=== PATIENT | female | born 1990 | race Caucasian/White ===

== ENCOUNTER 2020-01-25 14:55 | Outpatient (RCR) | payer OTHER, SELFPAY ==
[2020-01-01 10:29] VITALS: BP 112/70; PULSE 106
[2020-01-25 15:32] VITALS: BP 103/81; PULSE 96
== END 2020-02-18 08:54 | disposition home or self-care (01) ==
LOC: ANHOBOP 14:55
PROVIDERS: Visit Provider Obstetrics & Gynecology
DX: P59.9 Neonatal jaundice, unspecified (principal)
CPT/HCPCS: 59025

== ENCOUNTER 2020-02-15 05:58 | Inpatient (IN) | payer OTHER, SELFPAY ==
[2020-02-15] VITALS (164 sets, daily range): BP systolic 71–149; BP diastolic 47–97; PULSE 69–132; RESP 14; TEMP 36.4–37.2; O2SAT 94–100; BMI 44.5
[2020-02-15 06:49] LABS: Basophils Percent Auto 0.2 % (0.2-1.2); Eosinophils Absolute Auto 0.1 K/mm3 (0-0.3); Eosinophils Percent Auto 0.4 % (0-4.4); Hematocrit 32.7 % (37.0-47.0); Hemoglobin 10.6 g/dL (12.0-15.0); Immature Granulocyte Absolute 0.09 K/mm3 (0.00-0.031); Immature Granulocyte Percent A 0.6 % (0-0.5); Lymphocytes Absolute Auto 2.17 K/mm3 (0.9-3.2); Lymphocytes Percent Auto 15.5 % (18.3-44.2); Mean Corpuscular HGB Conc 32.4 g/dl (32-36); Mean Corpuscular Hemoglobin 27.8 pg (26-34); Mean Corpuscular Volume 85.8 fl (80-100); Mean Platelet Volume 9.7 fl (7.4-10.4); Monocytes Absolute Auto 0.9 K/mm3 (0.1-0.6); Monocytes Percent Auto 6.1 % (2.6-8.5); Neutrophils Absolute Auto 10.8 K/mm3 (1.3-6.7); Neutrophils Percent Auto 77.2 % (45.5-73.1); Platelet Count Result 280 k/mm3 (150-375); Red Blood Count 3.81 M/mm3 (4.2-5.4); Red Cell Distribution Width 14.6 % (11.5-14.5)
[2020-02-15] MEDS: LACTATED RINGERS 1,000 ML 125 ML IV CONT ×3 (06:55→10:14)
[2020-02-15] MEDS: ONDANSETRON INJ 4 MG/2 ML VIAL IV PUSH (06:56)
[2020-02-15] MEDS: OXYTOCIN 30 UNITS/NS 500 ML 30 UNITS/500 ML BAG IV CONT (07:00)
--- NOTE | 2020-02-15 07:21 | LDADM ---
This patient, Yessy Moss, was admitted to Labor/Delivery/Recovery 104 on 02/15/20 at 05:58. Plans for labor, pain management and were discussed with patient. Patient/family oriented to hospital policies and general routines including ID bracelet, bed and alarms, visiting hours, pain management, procedures, bathroom and other care routines, personal items, smoking policy, room service/diet and guest tray routines, security routines, and visiting hours. Patient/Family are encouraged to report perceived risks to care and to ask questions if they do not understand what they are told or what they should do. See OBIX for further documentation.
--- NOTE | 2020-02-15 07:40 | WPDOBADMIT ---
Obstetrics - Admit Note Admission Note: record reviewed. No pertinent additions to the history and/or any subsequent changes in the physical findings that are not consistent with the expected course of the were found. MIL 39 weeks gestation, obesity, AROM 4/70/-2 moderate amount of clear odorless fluid Additions to the history and/or subsequent changes in the physical findings follow. None.
--- NOTE | 2020-02-15 09:37 | WPDANESEPPF ---
Anes - Initial Pre Proc Eval Date/Time: 02/15/20 09:37 Surgeon: Hamida Davis MD Pre Op Diagnosis: Induction of Labor Patient Data Age: 29 Gender: F Height: 1.6 m Weight: 114 kg Last Vital Signs Temp 36.9 C 02/15/20 08:30 Pulse 99 02/15/20 09:31 BP 143/90 H 02/15/20 09:31 Allergies Allergy/AdvReac Type Severity Reaction Status Date / Time No Known Allergies Allergy Verified 01/25/20 14:31 Home Medications Medication Instructions Recorded Confirmed Type PNV cmb#95-ferrous fumarate-FA 1 tablet PO DAILY 01/25/20 01/25/20 History [] Laboratory Tests 02/15/20 02/15/20 02/15/20 06:39 06:39 06:39 WBC 14.0 K/mm3 H K/mm3 (4.5-10.0) RBC 3.81 M/mm3 L M/mm3 (4.2-5.4) Hgb 10.6 g/dL L g/dL (12.0-15.0) Hct 32.7 % L % (37.0-47.0) MCV 85.8 fl fl (80-100) MCH 27.8 pg pg (26-34) MCHC 32.4 g/dl g/dl (32-36) RDW 14.6 % H % (11.5-14.5) Plt Count 280 k/mm3 k/mm3 (150-375) MPV 9.7 fl fl (7.4-10.4) Immature Gran % (Auto) 0.6 % H % (0-0.5) Neut % (Auto) 77.2 % H % (45.5-73.1) Lymph % (Auto) 15.5 % L % (18.3-44.2) [place] % (Auto) 6.1 % % (2.6-8.5) Eos % (Auto) 0.4 % % (0-4.4) Baso % (Auto) 0.2 % % (0.2-1.2) Lymph # (Auto) 2.17 K/mm3 K/mm3 (0.9-3.2) [place] # (Auto) 0.9 K/mm3 H K/mm3 (0.1-0.6) Eos # (Auto) 0.1 K/mm3 K/mm3 (0-0.3) Baso # (Auto) 0.0 K/mm3 K/mm3 (0.0-0.1) Abs Immat Gran (auto) 0.09 K/mm3 H K/mm3 (0.00-0.031) Absolute Neuts (auto) 10.8 K/mm3 H K/mm3 (1.3-6.7) Absolute Nucleated RBC 0.0 K/mm3 K/mm3 (0.0-0.012) Nucleated RBC % 0.0 % % (0.0-0.2) RPR Pending Blood Type A Positive Antibody Screen Negative Patient hx anesthesia problems: none Family hx anesthesia problems: none [facility] Family History Family History (Updated 01/25/20 @ 14:33 by Jessica Moreno RN) Father Hypertension Social History Social History Smoking status: Never smoker Substance use: never Spiritual care concerns: No Anes - Eval Final PreProcedure Day of Procedure 02/15/20 09:37 Patient weight: overweight Heart: regular rate and rhythm Lungs: clear to auscultation and normal air movement Airway: Mallampati scale class II Neurological: alert and oriented Last oral intake: >/= 8 hours ASA classification: II Emergent: no Anesthetic plan: proceed Anesthesia type and monitoring: regional epidural Informed Consent: The patient's anesthetic plan and its attendant risks and benefits were discussed with the patient/family/POA. Questions were solicited and answers provided to the satisfaction of the patient/family/POA.
[2020-02-15] MEDS: FAMOTIDINE 20 MG/2 ML VIAL IV PUSH (15:53)
--- NOTE | 2020-02-15 16:18 | P.PCNOB_ITS ---
OB - Delivery Note Procedure Delivery date: 02/15/20 Procedure: vaginal delivery, obesity Intrapartal events: None Induction method: AROM and per pitocin protocol Delivery monitor: external FHT and external uterine Laceration description: Perineal - 1st Degree Delivery repair: vicryl Specimen: No Estimated blood loss (mL): 30 Anesthesia type: Epidural Disposition: other () Narrative: mother and baby in stable condition [place] Date of : 02/15/20 Time of : 16:04 Weeks of gestation at delivery: 39 gender: Male Weight (pounds): 8 Weight (ounces): 15 presentation: vertex position: Left Occiput Anterior Placenta delivery description: Spontaneous cord vessel description: 3 Vessels and Clamped/Cut score one minute: 9 score five minutes: 9
[2020-02-15] MEDS: OXYTOCIN 30 UNITS/NS 500 ML 30 UNITS/500 ML BAG 125 UNITS IV CONT (16:36)
[2020-02-15] MEDS: METHYLERGONOVINE MALEATE 0.2 MG/ML VIAL IM (18:03)
[2020-02-15] MEDS: WITCH HAZEL 40 PADS 1 PAD TOPICAL (19:25)
[2020-02-15] MEDS: BENZOCAINE 20% AER SPR (*SP) 56 GM CAN 1 SPRAY TOPICAL (19:25)
[2020-02-15] MEDS: IBUPROFEN 600 MG TABLET PO (22:30)
--- NOTE | 2020-02-15 22:47 | PC.NURSE ---
Patient transferred to post room #291 via ( wheelchair ). Support person present. Oriented to unit, room, information board, rooming in, admission packet and security measures. Patient verbalizes understanding.
[2020-02-16] MEDS: IBUPROFEN 600 MG TABLET PO (04:23)
[2020-02-16 05:39] LABS: Hematocrit 29.1 % (37.0-47.0); Hemoglobin 9.2 g/dL (12.0-15.0)
[2020-02-16] MEDS: POLYSACCHARIDE IRON COMPLEX 150 MG CAPSULE PO (08:51)
[2020-02-16] MEDS: MULTIVIT/MIN/PREN/FOL AC/IRON TABLET 1 TAB PO (08:51)
[2020-02-16] MEDS: DOCUSATE SODIUM 100 MG CAPSULE PO (08:51)
--- NOTE | 2020-02-16 09:50 | P.PNOB_ITS ---
OB - PN: Subj Subjective Date/time seen: 02/16/20 09:50 OB - PN: Obj Data Labs CBC & Chem 7: 02/16/20 04:28 Labs: Laboratory Results - last 24 hr 02/16/20 04:28 Hgb 9.2 L Hct 29.1 L OB - PN A/P Assessment and Plan (1) Vaginal delivery: Code(s): O80 - Encounter for full-term uncomplicated delivery Status: Acute Plan day: 1 Plan: routine care Comments: Pt is considering discharge after 24 hours. Time Spent With Patient Time: Total time spent is greater than 50% in coordination of care (as documented) at patient's floor/unit and/or counseling patient: Time with patient: less than 15 minutes Review of Systems Review of Systems: All systems reviewed & are unremarkable except as noted in HPI and below Exam Narrative: Exam Narrative: Fundus firm and vaginal flow controlled. Const: General: comfortable Chest: Breast/axilla inspection: normal inspection of the breasts Resp: Effort & Inspection: normal respiratory effort Cardio: Rate: regular rate Psych: Appearance: grossly normal Affect: normal affect Attitude: coope rative Judgement: Good judgement present (Psych)
[2020-02-16 09:55] VITALS: BP 115/83; PULSE 101; RESP 18; TEMP 36.9
[2020-02-18 07:06] LABS: Rapid Plasma Reagin Non-Reactive (NonReactive)
--- NOTE | 2020-02-20 07:51 | P.DS_ITS ---
DS: Diagnosis Admitting Diagnosis Admitting Diagnosis: Encounter for full-term uncomplicated delivery OB - DS: Summary OB Procedures : None OB Procedures Intrapartum: Spontaneous Vag Delivery OB Procedures: : None Time Spent with Patient Time attestation: Total time spent providing and/or coordinating discharge services: Discharge Plan Discharge Attending physician on discharge: Augustina Curry Consulting providers: Cammie Pantoja ; Augustina Curry Discharging Clinician: Cammie Pantoja Patient Disposition: Home, Self-Care Activity: pelvic rest Diet: as tolerated Discharge Instructions: Education: Mom and Baby Guide Given to: Mother Follow-Up: Call your delivering provider's office for an appointment to be seen. Mom and baby should come to the [facility] for the follow-up appointment. Appointment Date/Time: February 19, 2020 at 8:00 am. What to expect at your follow-up visit: Physical Assessment Call [phone] if you are unable to keep your appointment time. BREAST CARE: 1. Wear a snug supportive bra. 2. For engorgement discomfort: Breast Feeding: A. Apply warm moist washcloths B. Express milk as needed to relieve engorgement C. Wear loose clothing 3. For sore nipples: A. Identify correct latch-on B. Apply warm moist washcloths before and after nursing C. Air dry nipples after nursing D. May apply Lansinoh cream to nipples EPISIOTOMY/PERINEAL CARE: 1. Until bleeding stops, use your tala bottle after urinating 2. Change your pad frequently throughout the day 3. You may take sitz baths several times a day (fill your bathtub with warm water and soak for 20 minutes.) Do NOT bathe in the water 4. No tub baths until seen by your physician - You may shower ACTIVITY: 1. Rest as much as possible. 2. Do not exercise or lift anything heavier than your baby (such as laundry or other children.) 3. Avoid stairs or driving as much as possible. 4. Do not put anything into the vagina. No douching, tampons, or sexual act ivity until seen by physician. NOTIFY PHYSICIAN IF YOU HAVE ANY QUESTIONS OR IF ANY OF THE FOLLOWING SYMPTOMS OCCUR: 1. If your stitches becomes red, swollen, or more painful than what you have experienced in the hospital. 2. If your vaginal bleeding becomes foul smelling. 3. If your vaginal bleeding becomes more heavy than a period or if your bleeding changes from pink to bright red. However, you may pass an occasional walnut- sized clot once or twice for the first week . 4. If you experience a sharp, shooting pain in you calves. 5. If you discover a hard, reddened area on your breast or if you experience flu-like symptoms. DIET: 1. Eat regular, well-balanced meals. 2. Drink plenty of fluids daily. If , drink to thirst. Stand Alone Forms: General Discharge Information Follow-up/Referrals: Hamida Davis MD [Physician] - Discharge Medications: New polysaccharide iron complex 150 mg iron Capsule 150 mg PO BIDWM Qty: 60 RF: 0 Continued PNV cmb#95-ferrous fumarate-FA [] 28 mg iron- 800 mcg Tablet 1 tablet PO DAILY RF: 0 Date of admission: 02/15/20 05:58 Primary Care Provider: UNKNOWN,DOCTOR Admitting Provider: Hamida Davis Discharge Date/Time: 02/16/20 17:04 Attending physician on admission: Hamida Davis
--- NOTE | 2020-02-21 04:29 | PM.OBDSVD ---
DS: Diagnosis Admitting Diagnosis Admitting Diagnosis: Encounter for full-term uncomplicated delivery OB - DS: Summary OB Procedures : None OB Procedures Intrapartum: Spontaneous Vag Delivery OB Procedures: : None Time Spent with Patient Time attestation: Total time spent providing and/or coordinating discharge services: Discharge Plan Discharge Attending physician on discharge: Augustina Curry Consulting providers: Cammie Pantoja ; Augustina Curry Discharging Clinician: Cammie Pantoja Patient Disposition: Home, Self-Care Activity: pelvic rest Diet: as tolerated Discharge Instructions: Education: Mom and Baby Guide Given to: Mother Follow-Up: Call your delivering provider's office for an appointment to be seen. Mom and baby should come to the [facility] for the follow-up appointment. Appointment Date/Time: February 19, 2020 at 8:00 am. What to expect at your follow-up visit: Physical Assessment Call [phone] if you are unable to keep your appointment time. BREAST CARE: 1. Wear a snug supportive bra. 2. For engorgement discomfort: Breast Feeding: A. Apply warm moist washcloths B. Express milk as needed to relieve engorgement C. Wear loose clothing 3. For sore nipples: A. Identify correct latch-on B. Apply warm moist washcloths before and after nursing C. Air dry nipples after nursing D. May apply Lansinoh cream to nipples EPISIOTOMY/PERINEAL CARE: 1. Until bleeding stops, use your tala bottle after urinating 2. Change your pad frequently throughout the day 3. You may take sitz baths several times a day (fill your bathtub with warm water and soak for 20 minutes.) Do NOT bathe in the water 4. No tub baths until seen by your physician - You may shower ACTIVITY: 1. Rest as much as possible. 2. Do not exercise or lift anything heavier than your baby (such as laundry or other children.) 3. Avoid stairs or driving as much as possible. 4. Do not put anything into the vagina. No douching, tampons, or sexual activity until seen by physician. NOTIFY PHYSICIAN IF YOU HAVE ANY QUESTIONS OR IF ANY OF THE FOLLOWING SYMPTOMS OCCUR: 1. If your stitches becomes red, swollen, or more painful than what you have experienced in the hospital. 2. If your vaginal bleeding becomes foul smelling. 3. If your vaginal bleeding becomes more heavy than a period or if your bleeding changes from pink to bright red. However, you may pass an occasional walnut-sized clot once or twice for the first week . 4. If you experience a sharp, shooting pain in you calves. 5. If you discover a hard, reddened area on your breast or if you experience flu-like symptoms. DIET: 1. Eat regular, well-balanced meals. 2. Drink plenty of fluids daily. If , drink to thirst. Stand Alone Forms: General Discharge Information Follow-up/Referrals: Hamida Davis MD [Physician] - Discharge Medications: New polysaccharide iron complex 150 mg iron Capsule 150 mg PO BIDWM Qty: 60 RF: 0 Continued PNV cmb#95-ferrous fumarate-FA [] 28 mg iron- 800 mcg Tablet 1 tablet PO DAILY RF: 0 Date of admission: 02/15/20 05:58 Primary Care Provider: UNKNOWN,DOCTOR Admitting Provider: Hamida Davis Discharge Date/Time: 02/16/20 17:04 Attending physician on admission: Hamida Davis
== END 2020-02-16 17:04 | disposition home or self-care (01) | DRG 807 ==
LOC: ANHLDR 06:05 → ANHOB2 19:46
PROVIDERS: Advanced Practice Midwife; Admitting Provider Obstetrics & Gynecology; Visit Provider Obstetrics & Gynecology
DX: O99.214 Obesity complicating childbirth (principal); Z37.0 Single live birth; Z3A.39 39 weeks gestation of pregnancy; E66.9 Obesity, unspecified; O70.0 First degree perineal laceration during delivery
CPT/HCPCS: 36415; 85014; 85018; 85025; 86592; 86850; 86900; 86901; A9270; J2210; J2405; J2590; J2795; J7120

== ENCOUNTER 2022-02-23 21:37 | Observation (INO) | payer OTHER, SELFPAY ==
[2022-02-23] VITALS (9 sets, daily range): BP systolic 111–127; BP diastolic 74–84; PULSE 74–91; RESP 13–35; TEMP 36.2; O2SAT 94–99
--- NOTE | ~2022-02-23 | CT_ITS ---
EXAMINATION: CT abdomen pelvis w con INDICATION: Lower abdominal pain TECHNIQUE: Computed tomographic images of the abdomen and pelvis were obtained after the administrati on of 100 cc of Omnipaque 300 intravenous contrast. The dose-length product (DLP) was 1421.12 mGy-cm. Automated exposure control and iterative reconstruction technique were employed. COMPARISON: None available FINDINGS: Minimal dependent atelectasis is present in the lung bases. The heart size is normal. The s pleen, pancreas, and adrenal glands are normal. Stones are present in the nondistended gallbladder. T here is a 1.7 cm hemangioma in the right hepatic lobe. The kidneys are unremarkable. Colonic divertic ulosis is noted. There is wall thickening of the sigmoid colon with edematous stranding of the adjace nt perisigmoid fat. There are small foci of free air adjacent to the affected segment. A small volume of pelvic ascites is present. No pathologically enlarged abdominal or pelvic lymph nodes are identif ied. There are no dilated loops of bowel. The appendix is normal. There is mild anterior wedging of v ertebral bodies in the lower thoracic spine. IMPRESSION: 1. Perforated sigmoid diverticulitis. 2. Cholelithiasis without evidence of cholecystitis. Reviewed, dictated and finalized at location A.
[2022-02-23 22:05] LABS: Appearance Urine Clear (Clear); Bilirubin Urine 1+ (Negative); Blood Urine Negative (Negative); Color Urine Yellow (Yellow); Glucose Urine UA Negative (Negative); Ketones Urine 2+ mg/dL (Negative); Leukocyte Esterase Ur Trace LEU/UL (Negative); Nitrate Urine Negative (Negative); Protein Urine 2+ mg/dL (Negative); Specific Grav Ur >= 1.030 (1.001-1.035); Urobilinogen Urine 0.2 mg/dL (<2.0)
[2022-02-23 22:10] LABS: Add Urine Microscopic? YES; Mucus Urine Moderate /lpf; Squamous Epithelial Cell Urine Moderate /hpf (Few)
[2022-02-23 22:31] LABS: Basophils Percent Auto 0.5 % (0.2-1.2); Eosinophils Absolute Auto 0.1 K/mm3 (0-0.3); Eosinophils Percent Auto 0.8 % (0-4.4); Hematocrit 38.5 % (37.0-47.0); Hemoglobin 12.5 g/dL (12.0-15.0); Immature Granulocyte Absolute 0.02 K/mm3 (0.00-0.031); Immature Granulocyte Percent A 0.3 % (0-0.5); Lymphocytes Percent Auto 9.2 % (18.3-44.2); Mean Corpuscular HGB Conc 32.5 g/dl (32-36); Mean Corpuscular Hemoglobin 29.1 pg (26-34); Mean Corpuscular Volume 89.5 fl (80-100); Mean Platelet Volume 9.2 fl (7.4-10.4); Monocytes Absolute Auto 0.6 K/mm3 (0.1-0.6); Monocytes Percent Auto 7.6 % (2.6-8.5); Neutrophils Absolute Auto 6.2 K/mm3 (1.3-6.7); Neutrophils Percent Auto 81.6 % (45.5-73.1); Platelet Count Result 274 k/mm3 (150-375); Red Cell Distribution Width 12.8 % (11.5-14.5); White Blood Count 7.6 K/mm3 (4.5-10.0)
[2022-02-23 22:43] LABS: Alanine Aminotransferase 118 U/L (6-35); Albumin Level 4.2 g/dL (3.5-5.1); Alkaline Phosphatase 126 U/L (38-126); Anion Gap 7 mmol/L (8-16); Aspartate Amino Transferase 137 U/L (14-36); Bilirubin,Total 0.4 mg/dL (0.2-1.3); Blood Urea Nitrogen 17 mg/dL (7-17); Calcium 8.9 mg/dL (8.4-10.2); Carbon Dioxide 27 mmol/L (22-30); Chloride 100 mmol/L (98-107); Estimated CRCL calculation 109 ml/min; Estimated Glomerular Filt Rate > 60; Glucose 125 mg/dL (65-110); Lipase 64 U/L (23-300); Potassium 3.6 mmol/L (3.4-5.0); Sodium 134 mmol/L (137-145)
--- NOTE | 2022-02-23 23:48 | ED.ABDPAIN ---
HPI - Abdominal Pain General Chief Complaint: Abdominal Pain <KATLYN Ngo Last Filed: 02/24/22 02:14> Stated Complaint: pelvic pain <KATLYN Ngo Last Filed: 02/24/22 02:14> Time Seen by Provider: 02/23/22 22:36 <KATLYN Ngo Last Filed: 02/24/22 02:14> Source: patient <KATLYN Nog Last Filed: 02/24/22 02:14> Mode of arrival: ambulatory <KATLYN Ngo Last Filed: 02/24/22 02:14> Limitations: no limitations <KATLYN Ngo Last Filed: 02/24/22 02:14> History of Present Illness HPI narrative: Patient is a 31-year-old female who presents the ED with report of suprapubic abdominal pain. Patient reports the pain began suddenly on Tuesday. She states the pain is worse with movement and feels as though when she moves there is something stationary in her lower abdomen which causes the pain. She has been taking ibuprofen at home which does provide relief of the pain but only temporary. She states she did have 1 episode of nausea and vomiting when the pain first began but has not had any since then. She has also had a subjective fever, chills, recent constipation, and urinary pressure with small void urine at home but denies any nausea, vomiting, upper abdominal pain, hematuria, rectal bleeding, melena, diarrhea. <KATLYN Ngo Last Filed: 02/24/22 02:14> Related Data Home Medications: Home Medications Medication Instructions Recorded Confirmed No Home Medications 02/24/22 02/24/22 <KATLYN Ngo Last Filed: 02/24/22 02:14> Allergies/Adverse Reactions: Allergies Allergy/AdvReac Type Severity Reaction Status Date / Time No Known Allergies Allergy Verified 02/23/22 21:48 <KATLYN Ngo Last Filed: 02/24/22 02:14> Review of Systems Review of Systems: CONSTITUTIONAL: Reports subjective fever and chills. Denies sweats. CARDIOVASCULAR: Denies chest pain. RESPIRATORY: Denies dyspnea. GASTROINTESTINAL: Reports suprapubic abdominal pain, constipation. Denies upper abdominal pain, nausea, vomiting, rectal bleeding, melena, or diarrhea. GENITOURINARY: Reports urinary pressure with small void urine. Denies dysuria or hematuria. SKIN: Denies rash or itching. MUSCULOSKELETAL: Denies back pain, joint pain, or myalgia. <Shonna Gutierrez PA-C - Last Filed: 02/24/22 02:14> All systems reviewed & are unremarkable except as noted in HPI and below <Shonna Gutierrez PA-C - Last Filed: 02/24/22 02:14> [facility] Past Medical History Medical History: Medical History (Updated 02/24/22 @ 01:42 by Shonna Gutierrez PA-C) No pertinent past medical history <Shonna Gutierrez PA-C - Last Filed: 02/24/22 02:14> Surgical History Surgical History: Surgical History (Updated 02/24/22 @ 01:42 by Shonna Gutierrez PA-C) No pertinent past surgical history <Shonna Gutierrez PA-C - Last Filed: 02/24/22 02:14> Family History Family History: Family History Father Hypertension <Shonna Gutierrez PA-C - Last Filed: 02/24/22 02:14> Social History Social History: Social History Smoking status: Never smoker Alcohol intake: current Substance use: never Spiritual care concerns: No <Shonna Gutierrez PA-C - Last Filed: 02/24/22 02:14> Exam Narrative: GENERAL: Well appearing, obese, non-toxic, in no acute distress. HEAD: Normocephalic, atraumatic. NECK: Supple. No adenopathy, no masses. RESPIRATORY: Airway patent, respirations nonlabored. Clear to auscultation bilaterally, no rales, rhonchi, wheezing. CARDIOVASCULAR: Regular rate and rhythm without murmurs, rubs, or gallops. Radial pulses 2+ and equal bilaterally. ABDOMINAL: Soft, suprapubic tenderness to palpation, greater on left side than right. No tenderness to palpation in any other quadrants. Nondistended, no hepatosplenomegaly. Nor
[2022-02-24] VITALS (18 sets, daily range): BP systolic 103–135; BP diastolic 63–76; PULSE 60–87; RESP 16–30; TEMP 36.1–37.6; O2SAT 96–100
[2022-02-24] MEDS: SODIUM CHLORIDE 0.9% IV 1,000 ML 999 ML IV CONT (00:11)
--- NOTE | 2022-02-24 00:28 | PC.NURSE ---
Patient taken down for CT Scan at this time.
[2022-02-24 02:49] LABS: Lactic Acid Reflex 0.6 mmol/L (0.7-2.0)
[2022-02-24 03:18] LABS: SARS-CoV-2 RNA PCR Negative
--- NOTE | 2022-02-24 04:03 | ADMGEN ---
This patient, Yessy Moss, was admitted to [facility] Surg Room 314-01. Patient/family oriented to hospital policies and general routines including ID bracelet, bed and alarms, visiting hours, pain management, procedures, bathroom and other care routines, personal items, smoking policy, room service/diet, and visiting hours. Information on how to activate the Rapid Response Team has been discussed. Patient/Family are encouraged to report perceived risks to care and to ask questions if they do not understand what they are told or what they should do.
[2022-02-24] MEDS: SODIUM CHLORIDE 0.9% IV 1,000 ML 125 ML IV CONT (04:24)
[2022-02-24 06:34] LABS: Basophils Absolute Auto 0.1 K/mm3 (0.0-0.1); Basophils Percent Auto 0.8 % (0.2-1.2); Eosinophils Absolute Auto 0.1 K/mm3 (0-0.3); Eosinophils Percent Auto 2.1 % (0-4.4); Hemoglobin 11.5 g/dL (12.0-15.0); Immature Granulocyte Absolute 0.03 K/mm3 (0.00-0.031); Immature Granulocyte Percent A 0.5 % (0-0.5); Lymphocytes Percent Auto 13.5 % (18.3-44.2); Mean Corpuscular HGB Conc 31.9 g/dl (32-36); Mean Corpuscular Volume 90.9 fl (80-100); Mean Platelet Volume 9.7 fl (7.4-10.4); Monocytes Absolute Auto 0.7 K/mm3 (0.1-0.6); Monocytes Percent Auto 10.2 % (2.6-8.5); Neutrophils Absolute Auto 4.9 K/mm3 (1.3-6.7); Neutrophils Percent Auto 72.9 % (45.5-73.1); Platelet Count Result 257 k/mm3 (150-375); Red Blood Count 3.96 M/mm3 (4.2-5.4); Red Cell Distribution Width 12.9 % (11.5-14.5); White Blood Count 6.7 K/mm3 (4.5-10.0)
[2022-02-24 06:55] LABS: Alanine Aminotransferase 119 U/L (6-35); Albumin Level 3.8 g/dL (3.5-5.1); Alkaline Phosphatase 118 U/L (38-126); Anion Gap 6 mmol/L (8-16); Aspartate Amino Transferase 104 U/L (14-36); Bilirubin,Total 0.3 mg/dL (0.2-1.3); Blood Urea Nitrogen 11 mg/dL (7-17); Calcium 8.1 mg/dL (8.4-10.2); Carbon Dioxide 24 mmol/L (22-30); Chloride 105 mmol/L (98-107); Estimated CRCL calculation 143 ml/min; Estimated Glomerular Filt Rate > 60; Glucose 101 mg/dL (65-110); Potassium 3.5 mmol/L (3.4-5.0); Sodium 135 mmol/L (137-145)
--- NOTE | 2022-02-24 10:37 | PM.IMHP ---
H&P: HPI History of Present Illness Date/Time: 02/24/22 10:37 Chief Complaint: Lower abdominal pain Narrative: This is 31-year-old female who no pertinent medical history, who presented to the ER with complaints of suprapubic abdominal pain. She reports first noticing some nausea and had an episode of vomiting at home 3 days ago. Following the episode of vomiting, she noticed a gradual onset of suprapubic abdominal pain. She thought the pain was related to the vomiting, and took ibuprofen for this. The pain improved. Over the next 2 days, she continued to have the same abdominal pain and would take ibuprofen as needed and felt it was helping with her pain. She states bending over seemed to aggravate the pain. She does report associated chills, but did not take her temperature to know if she had a fever. Yesterday, her abdominal pain was worsening despite taking ibuprofen, which prompted her to go into the ER for evaluation. She states that the bumps in the road on the way to the ER aggravated her pain. CT scan of the abdomen and pelvis showed perforated sigmoid diverticulitis and cholelithiasis without evidence of cholecystitis. Labs showed a white blood cell count of 6700, lactic acid 0.6, AST 137, and ALT 118. COVID test negative. Urinalysis noted to be abnormal. Patient denies any dysuria, frequency, urgency, or any other urinary complaints. Our service was called by the ED physician and the patient was admitted in the setting. She was started on IV Zosyn, IV fluids, and made NPO. She is now seen on medical floor. She reports her abdominal pain has improved significantly since admission. She denies having any abdominal pain at this time. She has not had any further nausea or vomiting since Tuesday. She reports her last bowel movement was either Tuesday night or Tuesday, but reportedly normal for her. She reports flatus. She denies a history of diverticulitis. She has never had a colonoscopy in the past. No previous abdominal surgeries. Review of Systems Review of Systems: All systems reviewed & are unremarkable except as noted in HPI and below Constitutional: Constitutional: Reports as per HPI, Reports chills and Denies fatigue Eyes: Eyes: Reports no additional eye complaints and Denies change in vision ENT: Reports system reviewed and no additional complaints, except as documented and Reports Normal hearing present Cardiovascular: Cardiovascular: Reports no additional cardiovascular complaints, Denies chest pain and Denies leg edema Respiratory: Respiratory: Reports no additional respiratory complaints, Denies cough and Denies dyspnea Gastrointestinal: Gastrointestinal: Reports as per HPI, Reports no additional gastrointestinal complaints, Reports abdominal pain (suprapubic), Denies bloating, Denies change in bowel habits, Denies coffee ground emesis, Denies constipation, Denies diarrhea, Reports nausea, Reports vomiting and Denies hematemesis Genitourinary: Genitourinary: Reports no additional female genitourinary complaints, Denies hematuria, Denies nocturia and Denies dysuria Musculoskeletal: Musculoskeletal: Reports no additional musculoskeletal complaints and Denies joint swelling Integumentary/Breasts: Skin/Breast: Reports system reviewed and no additional complaints, except as docu and Denies jaundice Neurologic: Reports system reviewed and no additional complaints, except as documented, Denies dizziness, Denies focal weakness, Denies numbness and Denies tingling PMFSH Past Medical History Medical History (Updated 02/24/22 @ 10:49 by CHARLIE Reyes) No pertinent past medical history Surgical History Surgical History (Updated 02/24/22 @ 10:49 by CHARLIE Reyes) No pertinent past surgical history Family History Family History Father Hypertension Social History Social History Smoki
[2022-02-24] MEDS: SODIUM CHLORIDE 0.9% IV 1,000 ML 75 ML IV CONT (14:11)
[2022-02-25] MEDS: SODIUM CHLORIDE 0.9% IV 1,000 ML 75 ML IV CONT (02:36)
[2022-02-25 06:00] VITALS: BP 115/78; PULSE 69; RESP 16; TEMP 36.8; O2SAT 100
[2022-02-25 07:04] LABS: Basophils Absolute Auto 0.1 K/mm3 (0.0-0.1); Basophils Percent Auto 0.7 % (0.2-1.2); Eosinophils Absolute Auto 0.1 K/mm3 (0-0.3); Eosinophils Percent Auto 1.9 % (0-4.4); Hematocrit 34.6 % (37.0-47.0); Immature Granulocyte Absolute 0.02 K/mm3 (0.00-0.031); Immature Granulocyte Percent A 0.3 % (0-0.5); Lymphocytes Percent Auto 21.7 % (18.3-44.2); Mean Corpuscular HGB Conc 31.8 g/dl (32-36); Mean Corpuscular Hemoglobin 29.1 pg (26-34); Mean Corpuscular Volume 91.5 fl (80-100); Mean Platelet Volume 9.4 fl (7.4-10.4); Monocytes Absolute Auto 0.9 K/mm3 (0.1-0.6); Monocytes Percent Auto 12.4 % (2.6-8.5); Neutrophils Absolute Auto 4.7 K/mm3 (1.3-6.7); Platelet Count Result 278 k/mm3 (150-375); Red Blood Count 3.78 M/mm3 (4.2-5.4); Red Cell Distribution Width 12.9 % (11.5-14.5); White Blood Count 7.4 K/mm3 (4.5-10.0)
[2022-02-25 07:25] LABS: Alanine Aminotransferase 97 U/L (6-35); Albumin Level 3.5 g/dL (3.5-5.1); Alkaline Phosphatase 160 U/L (38-126); Anion Gap 7 mmol/L (8-16); Aspartate Amino Transferase 74 U/L (14-36); Bilirubin,Total 0.4 mg/dL (0.2-1.3); Blood Urea Nitrogen 6 mg/dL (7-17); Carbon Dioxide 26 mmol/L (22-30); Chloride 104 mmol/L (98-107); Estimated CRCL calculation 109 ml/min; Estimated Glomerular Filt Rate > 60; Glucose 100 mg/dL (65-110); Magnesium 1.9 mg/dL (1.6-2.3); Potassium 3.5 mmol/L (3.4-5.0); Sodium 137 mmol/L (137-145)
--- NOTE | 2022-02-25 10:41 | PCDIET ---
Dietitian consult for Low fiber/high fiber. See Nutritional Teaching Intervention. Thank you for the consult.
--- NOTE | 2022-02-25 13:49 | PM.DS ---
DS: Admitting Diagnosis Discharge Date 02/25/22 Admitting Diagnosis Acute sigmoid diverticulitis with microperforation Elevated LFTs Obesity BMI > 40 Cholelithiasis DS: Discharge Diagnosis Discharge Diagnosis (1) Diverticulitis of intestine with perforation without abscess or bleeding: Code(s): K57.80 - Diverticulitis of intestine, part unspecified, with perforation and abscess without bleeding Status: Acute (2) Elevated LFTs: Code(s): R79.89 - Other specified abnormal findings of blood chemistry Status: Acute Assessment and Plan: AST and ALT slightly elevated, remain elevated with repeat labs. No acute issues. Would recommend follow-up with PCP for further work-up and management. (3) Obesity, morbid, BMI 40.0-49.9: Code(s): E66.01 - Morbid (severe) obesity due to excess calories Status: Acute Assessment and Plan: F/u with PCP for further management on weight loss. (4) Cholelithiasis: Code(s): K80.20 - Calculus of gallbladder without cholecystitis without obstruction Status: Acute Assessment and Plan: Incidentally noted on CT. Asymptomatic at this time. Discussed what symptoms to look for in the future that could be related to complications of gallstones. Recommended f/u with our service if having issues. DS: Summary Hospital Course Reason for hospitalization: This is a 31 yo female who presented to the ER with suprapubic abdominal pain. Work-up revealed acute sigmoid diverticulitis with microperforation on CT. WBC normal. She was admitted in this setting. Hospital Course: She was started on IV Zosyn, IV fluids, and made NPO initially. She was also given IV analgesics as needed for pain. She was monitored with serial abdominal exams and labs. She quickly responded well to the antibiotics and showed clinical improvement. Her WBC remained normal and she was afebrile. Her diet was slowly advanced to full liquids today. We consulted the dietitian to educate the patient on a low vs. high fiber diet. She will be advanced to a low fiber diet. She is passing gas but has not had a BM yesterday or today yet. She feels like she needs to have a BM. She is stable for discharge on oral antibiotics and follow-up with Dr. Arora. Status at Discharge Functional status at discharge: independent ambulation Overall status at discharge: patient is progressing back to baseline Time Spent with Patient Time attestation: Total time spent providing and/or coordinating discharge services:40 minutes Time spent: Greater than 30 minutes Exam Const: General: comfortable, no acute distress and awake Nutritional Appearance: obese Resp: Effort & Inspection: no respiratory distress Auscultation: clear to auscultation bilaterally Cardio: Rate: regular rate Rhythm: regular rhythm GI: Inspection: non-distended and obesity GI Palp: Yes Soft to palpation, Yes Tenderness to palpation present (GI) (much less tender, only mild suprapubic tenderness), No Guarding due to palpation present (GI) and No Rebound tenderness present Percussion: Yes normal to percussion Auscultation: normal bowel sounds Skin: General skin exam: normal color Neuro: General: moves all extremities and no focal motor deficits Extrem: General: normal to inspection Psych: Insight: Good insight present (Psych) Judgement: Good judgement present (Psych) DS: Data Data Completed and Pending Labs on day of discharge: Labs from last 24 hours 02/25/22 02/25/22 06:34 06:34 WBC 7.4 RBC 3.78 L Hgb 11.0 L Hct 34.6 L MCV 91.5 MCH 29.1 MCHC 31.8 L RDW 12.9 Plt Count 278 MPV 9.4 Immature Gran % (Auto) 0.3 Neut % (Auto) 63.0 Lymph % (Auto) 21.7 [place] % (Auto) 12.4 H Eos % (Auto) 1.9 Baso % (Auto) 0.7 Lymph # (Auto) 1.60 [place] # (Auto) 0.9 H Eos # (Auto) 0.1 Baso # (Auto) 0.1 Abs Immat Gran (auto) 0.02 Absolute Neuts (auto) 4.7 Absolute Nucleated RBC 0.0 Nucleated RBC % 0.0
[2022-02-25 14:00] VITALS: BP 117/80; PULSE 70; RESP 16; TEMP 36; O2SAT 97
== END 2022-02-25 15:25 | disposition home or self-care (01) ==
LOC: ANHED 02-24 02:11 → ANH3MEDSUR 02-24 03:23
PROVIDERS: Nurse Practitioner Family; Physician Assistant; Admitting Provider Surgery; Emergency Provider Emergency Medicine; PCP Nurse Practitioner Family; Visit Provider Surgery
DX: K57.20 Diverticulitis of large intestine with perforation and abscess without bleeding (principal); K80.20 Calculus of gallbladder without cholecystitis without obstruction; R79.89 Other specified abnormal findings of blood chemistry; E66.01 Morbid (severe) obesity due to excess calories; Z20.822 Contact with and (suspected) exposure to COVID-19
CPT/HCPCS: 36415; 74177; 80053; 81001; 81025; 83605; 83690; 83735; 85025; 87040; 87086; 87088; 96361; 96365; 96367; 99285; C9803; G0378; J0131; J2543; J7030; Q9967; U0003; U0005

== ENCOUNTER 2022-07-21 10:40 | Outpatient (CLI) | payer OTHER, SELFPAY ==
--- NOTE | ~2022-07-21 | XR_ITS ---
EXAM: XR thoracic spine 3V DATE: 07/21/2022 11:08 HISTORY: R10.11 - Right upper pain, compare to CT 03/07, RADICOLOPATHY . COMPARISON: CT 02/24/2022. FINDINGS: Mild scoliosis. Vertebral body alignment intact. Vertebral body heights preserved. Mild ant erior wedge deformity at T11 and T12, stable, presumed to be physiologic. Multilevel disc space narro wing and marginal osteophytosis. No traumatic malalignment or fracture. Visualized lung parenchyma is clear. IMPRESSION: Multilevel mild degenerative disc disease. Reviewed, dictated and finalized at location [facility].
== END 2022-07-21 10:41 | disposition home or self-care (01) ==
PROVIDERS: PCP Nurse Practitioner Family; Visit Provider Surgery
DX: R10.11 Right upper quadrant pain (principal); M51.36 Other intervertebral disc degeneration, lumbar region
CPT/HCPCS: 72072

== ENCOUNTER 2022-09-03 07:02 | Outpatient (CLI) | payer OTHER, SELFPAY ==
[2022-09-03 07:49] LABS: Basophils Absolute Auto 0.1 K/mm3 (0.0-0.1); Basophils Percent Auto 0.8 % (0.2-1.2); Eosinophils Absolute Auto 0.2 K/mm3 (0-0.3); Eosinophils Percent Auto 1.9 % (0-4.4); Hematocrit 38.4 % (37.0-47.0); Hemoglobin 12.8 g/dL (12.0-15.0); Immature Granulocyte Absolute 0.03 K/mm3 (0.00-0.031); Immature Granulocyte Percent A 0.4 % (0-0.5); Lymphocytes Absolute Auto 1.89 K/mm3 (0.9-3.2); Lymphocytes Percent Auto 24.3 % (18.3-44.2); Mean Corpuscular HGB Conc 33.3 g/dl (32-36); Mean Corpuscular Hemoglobin 29.6 pg (26-34); Mean Corpuscular Volume 88.7 fl (80-100); Mean Platelet Volume 9.2 fl (7.4-10.4); Monocytes Absolute Auto 0.6 K/mm3 (0.1-0.6); Monocytes Percent Auto 7.1 % (2.6-8.5); Neutrophils Absolute Auto 5.1 K/mm3 (1.3-6.7); Neutrophils Percent Auto 65.5 % (45.5-73.1); Platelet Count Result 368 k/mm3 (150-375); Red Blood Count 4.33 M/mm3 (4.2-5.4); Red Cell Distribution Width 12.5 % (11.5-14.5); White Blood Count 7.8 K/mm3 (4.5-10.0)
== END 2022-09-03 07:03 | disposition home or self-care (01) ==
LOC: ANHLAB 07:04
PROVIDERS: PCP Nurse Practitioner Family; Visit Provider Surgery
DX: R10.32 Left lower quadrant pain (principal)
CPT/HCPCS: 36415; 85025

== ENCOUNTER 2023-11-28 08:11 | Emergency (ER) | payer OTHER, SELFPAY ==
[2023-11-28 08:17] VITALS: BP 134/93; PULSE 95; RESP 16; TEMP 36.8; O2SAT 99
--- NOTE | 2023-11-28 08:35 | ED.URI ---
HPI - URI/Sore Throat General Chief Complaint: Upper Respiratory Infection Stated Complaint: Sore throat Time Seen by Provider: 11/28/23 08:20 Source: patient Mode of arrival: ambulatory Limitations: no limitations History of Present Illness HPI Narrative: Jazmin is a 33-year-old female patient presenting to the clinic today with complaints of a sore throat, mild congestion, and possible fever. She reports she has felt feverish but did not checked her temperature. No known sick contacts MD elicited complaint: sore throat and nasal congestion Related Data Allergies Allergy/AdvReac Type Severity Reaction Status Date / Time No Known Allergies Allergy Verified 11/28/23 08:18 Review of Systems Review of Systems: Pertinent positives per HPI. Patient denies any rash, headache, visual changes, dizziness, cough, shortness of breath, chest pain, palpitations, nausea, vomiting, diarrhea, constipation, abdominal pain, or any urinary issues. [facility] Past Medical History Medical History (Updated 11/28/23 @ 08:36 by Alonzo Byrd APRN) Anterolisthesis of thoracic spine No pertinent past medical history Surgical History Surgical History No pertinent past surgical history Family History Family History Father Hypertension Social History Social History Smoking status: Never smoker Alcohol intake: current Substance use: never Living arrangements: with family Additional living arrangements comments: and two children Occupation/Education: other Additional occupation/education comments: Stay at home mom Gender identity (if verbalized by the patient): Female Spiritual care concerns: No Comments At the time of my signature, I reviewed and agree with the nursing past medical, surgical, social, and family history. There is no relevant family history pertinent to the patient complaint. Exam Narrative: General: Well-developed, morbidly obese, in no apparent distress Head: Normocephalic, atraumatic Eyes: Pupils equally round and reactive to light bilaterally, EOM intact, sclera and conjunctive clear, no discharge, lids normal Ears: TMs intact and clear, ear canals clear, no drainage, grossly hearing normal. Nose: Nares patent, no discharge, mild inflammation to the right turbinates, no sinus tenderness. Mouth: Oral pharynx was red without lesions or masses, good dentition, MMM. Neck: Supple, trachea midline, no enlargement of anterior or posterior cervical nodes, no thyroid masses or goiter palpable. Cardio: Regular rate and rhythm, s1 and s2 normal, no murmur appreciated. Resp: Clear to auscultation bilaterally, no rhonchi, rales, wheezing or rubs Course Course Emergency Course: Portions of this record may have been created with voice recognition software. Level of Care: Express Care Visit Vital Signs Vital signs: Vital Signs Temperature 36.8 C 11/28/23 08:17 Pulse Rate 95 11/28/23 08:17 Respiratory Rate 16 11/28/23 08:17 Blood Pressure 134/93 H 11/28/23 08:17 Pulse Oximetry 99 11/28/23 08:17 Oxygen Delivery Room Air 11/28/23 08:17 Temperature 36.8 C 11/28/23 08:17 Pulse Rate 95 11/28/23 08:17 Respiratory Rate 16 11/28/23 08:17 Blood Pressure 134/93 H 11/28/23 08:17 Pulse Oximetry 99 11/28/23 08:17 Oxygen Delivery Room Air 11/28/23 08:17 Vital signs reviewed MDM - URI/Sore Throat MDM Narrative Medical decision making narrative: At the time of visit patient is resting comfortably on the exam table. Patient appears to be nontoxic. Labs: Strep test was positive in the clinic today. Plan: Patient has strep pharyngitis. Prescription for amoxicillin was sent to the pharmacy. Supportive measures were discussed with the patient and they voiced understandin
== END 2023-11-28 08:44 | disposition home or self-care (01) ==
PROVIDERS: Emergency Provider Nurse Practitioner Family
DX: J02.0 Streptococcal pharyngitis (principal)
CPT/HCPCS: 87880; 99213; G0463